=== PATIENT | male | born 1970 | race Caucasian/White ===

== ENCOUNTER → 2017-03-18 | Outpatient (CLI) | payer OTHER ==
[~2017-03-18] MED LIST: CRS/10 PO; GABA-113 PO; GADAVIST IV PRN; OMEGCAP2 PO
--- NOTE | 2017-03-18 18:46 | DIAGNOSTIC IMAGING REPORT ---
MRI LUMBAR SPINE COMBINATION CLINICAL HISTORY: M54.16 Left lumbar [id number] Leg weakness TECHNIQUE: Sagittal and axial T1, T2 and STIR images were obtained. Imaging was performed before and after administration of 9.5 cc of intravenous Gadavist. COMPARISON STUDY: Noncontrast MRI the lumbar spine dated 12/28/2015 OBSERVATIONS: The vertebral bodies and posterior elements appear intact. There is no abnormal bony signal present to suggest a marrow replacement process. L1-2: No disc protrusions or extrusions. No evidence of spinal canal or neural foraminal compromise. L2-3: No disc protrusions or extrusions. No evidence of spinal canal or neural foraminal compromise. L3-4: No disc protrusions or extrusions. No evidence of spinal canal or neural foraminal compromise. L4-5: There is disc desiccation. There is a minimal circumferential disc bulge. There is no significant spinal or foraminal stenosis L5-S1: There is evidence for interval surgery with resection of the previously identified extruded disc fragment. There is an annular fissure and minimal right posterior central disc protrusion. There is no significant spinal or foraminal stenosis. The conus medullaris and cauda equina appear normal. There are no pathologically enhancing masses. IMPRESSION: 1. Interval resection of the previously identified large left-sided extruded disc fragment 2. Annular fissure and minimal right posterior central disc protrusion at the L5-S1 level. No evidence of significant spinal or foraminal stenosis. Electronically signed by: Nathen Doardo M.D. 03/18/2017 6:45 PM Dictated Date/Time: 03/18/2017 6:39 PM
== END | disposition home or self-care (01) ==
LOC: C.MRI 17:13
PROVIDERS: ATTEND Psychiatry & Neurology Neurology
DX: M54.16 Radiculopathy, lumbar region (principal); R29.898 Other symptoms and signs involving the musculoskeletal system